=== PATIENT | female | born 2000 | race Caucasian/White ===

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

== ENCOUNTER 2021-03-09 15:34 | Emergency (ER) | payer BC, OTHER ==
[2021-03-09 15:50] VITALS: RESP 18
[2021-03-09] MEDS ORDERED: KETOROLAC 15 MG/ML 1 ML VIAL IVP STA (17:07)
[2021-03-09] MEDS ORDERED: diphenhydrAMINE 50 MG/ML 1 ML VIAL IVP STA (17:07)
[2021-03-09] MEDS ORDERED: SODIUM CHLORIDE 0.9% 1,000 ML IV STA (17:07)
--- NOTE | 2021-03-09 17:14 | ED ---
Headache HPI <Juve Pan - Last Filed: 03/09/21 18:45> - General Source: patient, RN notes reviewed Mode of arrival: ambulatory Limitations: no limitations - History of Present Illness MD Complaint: headache -: hour(s) (17) Onset Description: gradual Location: left, frontal, other (Behind left eye) Severity scale (1-10): 6 Quality: aching, constant Improves With: nothing Worsens With: light Context: occurred at rest, other (Also complains of fever last night with cough, sore throat) Associated Symptoms: fever Other Symptoms: cough Treatments Prior to Arrival: other (vicks vapor rub and cough drops) - Related Data On Hormonal Control: No <Riley Kim - Last Filed: 03/09/21 20:25> - General Chief Complaint: Headache Stated Complaint: Vision Problems Time Seen by Provider: 03/09/21 16:34 - History of Present Illness Initial Comments: 20-year-old well-appearing well-nourished white female presents to the emergency room with complaints of headache that started last night at 10:45 PM. Patient states that she was getting ready to go to work and developed a headache and called in to work, states they were very unhappy. Patient states that she also had a fever at that time of 102 with a cough and a sore throat, took Advil at 10:50 PM and tried to get some sleep but was unable. She states that cough and fever resolved but still had a headache behind her left eye. Patient states that she also complained of left eye blurred vision, irrigated at home thinking it was maybe makeup on eyelash in it, but it did not resolve. Patient has had no sick exposures, denies any nausea vomiting or diarrhea. (Riley Kim) - Related Data Home Medications Medication Instructions Recorded Confirmed No Known Home Medications 03/09/21 03/09/21 Allergies Allergy/AdvReac Type Severity Reaction Status Date / Time No Known Allergies Allergy Verified 03/09/21 17:23 Review of Systems ROS Other: All systems not noted in ROS Statement are negative. <Juve Pan - Last Filed: 03/09/21 18:45> ROS Other: All systems not noted in ROS Statement are negative. <Riley Kim - Last Filed: 05/26/21 20:25> ROS Statement: Those systems with pertinent positive or pertinent negative responses have been documented in the HPI. Past Medical History Past Medical History: No Reported History History of Any Multi-Drug Resistant Organisms: MRSA Date of last positivie culture/infection: 2017 MDRO Source:: arms, thighs Past Surgical History: No Surgical Hx Reported Additional Past Surgical History / Comment(s): I&D of multiple skin abscesses Past Psychological History: Anxiety Smoking Status: Vaper Past Alcohol Use History: None Reported Past Drug Use History: Marijuana - Past Family History Mother Family Medical History: No Reported History Father Family Medical History: No Reported History <Riley Kim - Last Filed: 03/09/21 20:25> General Exam Limitations: no limitations <Riley Kim - Last Filed: 03/09/21 20:25> Course Vital Signs 03/09/21 03/09/21 15:46 18:30 Temperature 98.1 F 98.0 F Pulse Rate 72 67 Respiratory 18 18 Rate Blood Pressure 127/83 102/76 O2 Sat by Pulse 99 100 Oximetry Medical Decision Making <Juve Pan - Last Filed: 03/09/21 18:45> <Riley Kim - Last Filed: 03/09/21 20:25> - Medical Decision Making 20-year-old female had presented with headache, cough and cold symptoms and some blurriness in her left eye. After initial treatment patient does have improved headache and improved condition with no further blurry vision. She has no previous history of ocular complaints with her headaches. Headaches are typically occipital. She has no alarming features on history or physical exam. Headache was gradual in onset, not the worst headache of her life. She has no previous workup for headache. She will require outpatient follow-up she does not currently have a primary care physician. She is given a primary care physician and is given strict return parameters. At the time my evaluation she has no headache and no blurry vision. (Juve Pan) Patient states that her headache has resolved after Benadryl, Toradol and a liter bolus.. Visual acuity is 20/25 bilaterally, left eye 20/25, right eye 20/25. Patient is afebrile here in the emergency room. Lung sounds are clear to auscultation. Patient is ambulatory with steady gait. Patient will be direc shilo to follow up with her primary care doctor this week and return for worsening headache or blurred vision. With a self-reported fever of 102, this is likely a viral illness patient is well-appearing at discharge. Case discussed with Dr. Pan who is at bedside to examine patient. (Riley Kim) - Lab Data Lab Results 03/09/21 Range/Units 17:16 Influenza Type A (PCR) Not Detected (Not Detectd) Influenza Type B (PCR) Not Detected (Not Detectd) RSV (PCR) Not Detected (Not Detectd) SARS-CoV-2 (PCR) Not Detected (Not Detectd) Disposition Is patient prescribed a controlled substance at d/c from ED?: No Time of Disposition: 18:46 <Juve Pan - Last Filed: 03/09/21 18:45> Is patient prescribed a controlled substance at d/c from ED?: No <Riley Kim - Last Filed: 03/09/21 20:25> Clinical Impression: Headache, Viral illness Disposition: HOME SELF-CARE Condition: Good Instructions (If sedation given, give patient instructions): Acute Headache (ED) Additional Instructions: If headache worsens or visual changes persist please return to the emergency department. Follow-up with the primary care doctor this week. Referrals: Domonique Leon MD [Primary Care Provider] - 1-2 days Jp Rivas MD [REFERRING] - 1-2 days Doyle Ritter [STAFF PHYSICIAN] - 1-2 days
[2021-03-09 18:41] VITALS: BP 102/76; PULSE 67; TEMP 98
== END 2021-03-09 19:18 | disposition home or self-care (01) ==
LOC: EC 15:34
DX: B34.9 Viral infection, unspecified (principal); H53.8 Other visual disturbances; F17.290 Nicotine dependence, other tobacco product, uncomplicated; Z20.822 Contact with and (suspected) exposure to COVID-19
CPT/HCPCS: 87636; 96374; 96375; 96361; 99284; J1200; J1885

== ENCOUNTER 2022-07-25 08:01 | Emergency (ER) | payer OTHER ==
[2022-07-25 08:07] VITALS: RESP 16; TEMP 98.1
[2022-07-25] MEDS ORDERED: ONDANSETRON ODT 4 MG TAB PO STA (08:17)
--- NOTE | 2022-07-25 08:24 | ED ---
General Adult HPI - General Chief complaint: Nausea/Vomiting/Diarrhea Stated complaint: sorethroat, vomiting Time Seen by Provider: 07/25/22 08:05 Source: patient, RN notes reviewed Mode of arrival: ambulatory Limitations: no limitations - History of Present Illness Initial comments: 22-year-old female presents emergency Department with chief complaint of sore throat, nausea vomiting. Patient states that symptoms started yesterday morning progressed. Patient states that she has worsening sore throat. Patient states she tonsils are large but usually are. Denies any abdominal pain no chest pain no sick contacts. Patient's complaint district fever or chills. Patient has no significant past medical history denies any chance . - Related Data Previous Rx's Medication Instructions Recorded Ibuprofen [Motrin] 600 mg PO Q8HR PRN #30 tab 11/01/21 Ondansetron [Zofran ODT] 4 mg PO Q8HR PRN #10 tab 11/01/21 Ondansetron Odt [Zofran Odt] 4 mg PO Q8HR PRN #10 tab 07/25/22 Allergies Allergy/AdvReac Type Severity Reaction Status Date / Time No Known Allergies Allergy Verified 07/25/22 08:06 Review of Systems ROS Statement: Those systems with pertinent positive or pertinent negative responses have been documented in the HPI. ROS Other: All systems not noted in ROS Statement are negative. Past Medical History Past Medical History: No Reported History History of Any Multi-Drug Resistant Organisms: MRSA Date of last positivie culture/infection: 2017 MDRO Source:: arms, thighs Past Surgical History: No Surgical Hx Reported Additional Past Surgical History / Comment(s): I&D of multiple skin abscesses Past Psychological History: Anxiety Smoking Status: Current every day smoker, Vaper Past Alcohol Use History: None Reported Past Drug Use History: Marijuana - Past Family History Mother Family Medical History: No Reported History Father Family Medical History: No Reported History General Exam Limitations: no limitations General appearance: alert, in no apparent distress Head exam: Present: atraumatic, normocephalic, normal inspection Eye exam: Present: normal appearance, PERRL, EOMI. Absent: scleral icterus, conjunctival injection, periorbital swelling ENT exam: Present: mucous membranes moist, TM's normal bilaterally, normal external ear exam. Absent: normal oropharynx (Large tonsils with mild erythema) Neck exam: Present: normal inspection. Absent: tenderness, meningismus, lymphadenopathy Respiratory exam: Present: normal lung sounds bilaterally. Absent: respiratory distress, wheezes, rales, rhonchi, stridor Cardiovascular Exam: Present: regular rate, normal rhythm, normal heart sounds. Absent: systolic murmur, diastolic murmur, rubs, gallop, clicks GI/Abdominal exam: Present: soft, normal bowel sounds. Absent: distended, tenderness, guarding, rebound, rigid Neurological exam: Present: alert, oriented X3 Skin exam: Present: warm, dry, intact, normal color. Absent: rash Course Vital Signs 07/25/22 08:03 Temperature 98.1 F Pulse Rate 70 Respiratory 16 Rate Blood Pressure 126/85 O2 Sat by Pulse 99 Oximetry Medical Decision Making - Medical Decision Making 22-year-old presented for sore throat nausea vomiting. Patient's negative strep, negative:. Patient is viral URI. Patient's nausea is improved after Zofran. Vitals are stable be discharged in stable condition. - Lab Data Lab Results 07/25/22 07/25/22 Range/Units 08:30 08:30 Coronavirus (PCR) Not Detected (Not Detectd) Group A Strep (PCR) NOT DETECTED (Not Detectd) Disposition Clinical Impression: URI (upper respiratory infection), Nausea & vomiting, Acute pharyngitis Disposition: HOME SELF-CARE Condition: Stable Instructions (If sedation given, give patient instructions): Acute Nausea and Vomiting (ED) Additional Instructions: Please return to the Emergency Department if symptoms worsen or any other concer ns. Prescriptions: Ondansetron Odt [Zofran Odt] 4 mg PO Q8HR PRN #10 tab PRN Reason: Nausea Is patient prescribed a controlled substance at d/c from ED?: No Referrals: None,Stated [Primary Care Provider] - 1-2 days Time of Disposition: 10:04
[2022-07-25 10:21] VITALS: BP 113/82; PULSE 85
== END 2022-07-25 10:21 | disposition home or self-care (01) ==
LOC: EC 08:01
DX: J06.9 Acute upper respiratory infection, unspecified (principal); R11.2 Nausea with vomiting, unspecified; J02.9 Acute pharyngitis, unspecified; F17.290 Nicotine dependence, other tobacco product, uncomplicated; Z20.822 Contact with and (suspected) exposure to COVID-19
CPT/HCPCS: 87635; 87651; 99284

== ENCOUNTER 2024-03-21 14:27 | Emergency (ER) | payer OTHER ==
[2024-03-21 14:41] VITALS: BP 119/79; TEMP 98.1
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
[2024-03-21 16:56] VITALS: PULSE 77; RESP 18
== END 2024-03-21 17:15 | disposition home or self-care (01) ==
LOC: EC 14:27
DX: T74.11XA Adult physical abuse, confirmed, initial encounter (principal); R07.89 Other chest pain; F17.290 Nicotine dependence, other tobacco product, uncomplicated
CPT/HCPCS: 71046; 72100; 99284

== ENCOUNTER → 2024-08-12 | Outpatient (CLI) | payer OTHER ==
[2024-08-12 14:47] VITALS: PULSE 91; RESP 16; TEMP 98.8
--- NOTE | 2024-08-12 15:38 | P.HPOB ---
History of Present Illness H&P Date: 08/12/24 Chief Complaint: The patient is here for her routine gynecologic exam. This is a 24-year-old -0-1-0 with an LNMP of 2021. The patient is here to establish with this office. She has never had a pelvic exam done before. She had a Nexplanon implant placed about 2 years ago in 2021. This is her second Nexplanon that she has used. Generally has no menstrual periods, but can have occasional spotting. She is without gynecologic complaints. Review of Systems The patient has gained 9 pounds over the last year. She denies respiratory, cardiac, or G.I. problems. 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 History of Any Multi-Drug Resistant Organisms: MRSA Date of last positivie culture/infection: 2017 MDRO Source:: arms, thighs Past Surgical History: No Surgical Hx Reported Additional Past Surgical History / Comment(s): I&D of multiple skin abscesses Past Psychological History: Anxiety Smoking Status: Current some day smoker (Currently smoking cigarettes very little, vapes more than using cigarettes.), Vaper (Trying to cut back on vaping.) Past Alcohol Use History: None Reported Additional Past Alcohol Use History / Comment(s): Patient is a smoker one cigarette per day for years. She has history of marijuana use but is trying to stop. Patient denies any other drugs or IV drug use. She is currently living with her jl. Past Drug Use History: Marijuana (Not every day. Trying to stop.) Additional History: She is single and lives with her jl. They are caring for his nephew since in 2021. - Past Family History Mother Family Medical History: No Reported History Additional Family Medical History / Comment(s): Maternal grandmother has type 2 diabetes. Father Additional Family Medical History / Comment(s): Some type of colon problem requiring a colostomy. Paternal grandmother has hypertension. Sister(s) Family Medical History: Diabetes Mellitus Additional Family Medical History / Comment(s): Type 1 diabetes. Medications and Allergies Home Medications and Allergies Comment(s): She has a Nexplanon implant in her left arm since 2021. Home Medications Medication Instructions Recorded Confirmed Type No Known Home Medications 08/12/24 08/12/24 History Allergies Allergy/AdvReac Type Severity Reaction Status Date / Time No Known Allergies Allergy Verified 08/12/24 14:43 Exam Vital Signs Temp Pulse Resp Pulse Ox 08/12/24 14:44 98.8 F 91 16 99 Intake and Output 08/12/24 08/12/24 08/12/24 06:59 14:59 22:59 Other: Weight 93.44 kg Height 5 feet 2 inches, weight 206 pounds, BMI 37.7. This is a well-developed well-nourished heavyset female who is alert and newton ented times 3 in no acute distress. HEENT: Within normal limits. NECK: Supple without mass or thyromegaly. CHEST AND LUNGS: Clear to auscultation. HEART: Regular rate and rhythm. BREASTS: Are without mass or discharge. There is bilateral nipple piercing. AXILLARY EXAM: Negative for adenopathy. BACK: Negative for CVA tenderness. ABDOMEN: Soft, nontender, without palpable masses. PELVIC EXAM: Normal external genitalia. Cervix and vagina appear normal with a small amount of old blood in the back of the vagina. There is no cervical motion tenderness. There is no unusual discharge. There is no evidence of prolapse. The uterus is midposition, nongravid size and nontender. There are no palpable adnexal masses or tenderness. RECTAL EXAM: Deferred. EXTREMITIES: Nontender. The Nexplanon is palpable in the left arm between the bicep and tricep muscles. It is superficial. IMPRESSION: 1. 44-year-old female with normal gynecologic exam using Nexplanon for control. 2. Amenorrhea with infrequent spotting on Nexplanon. PLAN: 1. Pap smear was performed. 2. Self breast awareness was discussed with the patient. We have also discussed symptoms associated with inflammatory breast cancer. 3. GC and Chlamydia testing was obtained from the cervix. 4. STD prevention was discussed. I have stressed the importance of limiting sexual partners and we discussed condom use as a way to decrease the chances of STDs. 5. I have recommended that she take a daily multivitamin with folic acid. We have discussed how this can decrease the chances of certain defects if she ever did become . 6. She was advised to find the date of her Nexplanon insertion. She can do this by calling the health department where they inserted it. She understands that the Nexplanon is approved for 3 years use and after that time and may not be as effective for control. If the 3 years is coming up, she can call and we can help to arrange for her to have it replaced, or she can go to the health department and have it replaced there. 7. Weight control was discussed. I have stressed the importance of good nutrition, regular meals, adequate fiber and regular exercise. 8. She was advised to return in one year for her annual well woman exam and as needed.
== END ==
LOC: WWCWWP 14:21
PROVIDERS: ATTEND Obstetrics & Gynecology